=== PATIENT | male | born 1970 | race Caucasian/White ===

== ENCOUNTER 2016-12-11 12:11 | Emergency (ER) | payer OTHER ==
--- NOTE | ~2016-12-11 | US115 ---
[facility] A Service of [facility] & [facility] RADIOLOGY TEXT RESULTS PATIENT: OLY RAMIREZ LOCATION: [facility] : 72 UNIT #: [id number] AGE: [address]: Jack Hood MD SEX: M ORDER DR: [id number] [facility] [address] [place], [place] [address] [id number] MR#: [id number] Acc #: [id number] NAME: OLY RAMIREZ : 1970 SEX: M STUDY DATE/TIME: 12/11/2016 14:15 UNIT: [facility] ROOM: STUDY DESCRIPTION: US Scrotum and Contents Attending Physician: Jack Hood M.D. Ordering Physician: Jack Hood M.D. Primary Care Physician: No Primary Care Physician MEDICAL IMAGING REPORT This report is preliminary unless electronic signature is present EXAM Scrotal ultrasound, 12/11/16. HISTORY Pain for 10 weeks. Hydrocele drainage 10 weeks ago. Pain persists and swelling ever since. TECHNIQUE Real-time ultrasonography of the scrotal contents performed. Garcia-scale, color Doppler, Doppler pulse-wave interrogation utilized. COMPARISON 08/09/16. FINDINGS Left testis measures 3.33 cm x 1.79 cm x 1.40 cm. Normal in contour. Slightly heterogeneous echotexture. No change from 08/09/16, and no focal mass lesion is seen. Arterial and venous flow present in the left testis. Lateral left varicocele. Similar appearance on prior study. This is a relatively prominent varicocele. The right hemiscrotum shows a large hydrocele. Fluid measures about 8.1 cm in transverse diameter. Full longitudinal extent not evident, but it measures at least at 5 cm in craniocaudal extent. I does exert mass effect on the testis. The right testis measures 2.7 cm x 3.95 cm x 1.27 cm. Again, it is normal in contour. Slight parenchymal heterogeneity, but no focal mass lesion seen. The right epididymis contains a complicated cyst in the epididymal head measuring about 3 cm x 2 cm x 3-4 cm. This is smaller than on prior examination when it measured up to 5.8 mm. Large right hydrocele on prior examination as well. No right sided varicocele. Arterial and venous flow in the right testis. Later images of the study do give full dimensions for the right-sided hydrocele. It measures about 9.56 cm x 7.96 cm x 8.17 cm. [employer]. [facility] A Service of [facility] RADIOLOGY TEXT RESULTS PATIENT: OLY RAMIREZ LOCATION: [facility] : 71 UNIT #: [id number] AGE: [address]: Jack Hood MD SEX: M ORDER DR: notes the fluid is posterior and superior to the right testis. IMPRESSION 1. Please see complete dictation above for full details. The bilateral testes are normal in size and contour. Stable appearance of very slightly heterogeneous parenchymal echotexture with no testicular mass lesion suggested. Arterial and venous flow in bilateral testes. 2. Large right hydrocele or spermatocele. It measures about 8.1 cm x 9.5 cm x 7.9 cm. It exerts mass effect on the right testis displacing it into the inferior right hemiscrotum. 3. Right epididymal head cyst. It contains some low-level internal echoes which may represent cyst debris. It is smaller than in August 2016. 4. Prominent left varicocele. Similar appearance on prior study. Dictated by... Contreras Davis M.D. THIS IS AN ELECTRONICALLY VERIFIED REPORT Contreras Davis M.D. at 12/11/2016 5:16 PM QUINCY/anton TD: 12/11/2016 16:12 JOB #: [id number] MEDICAL IMAGING REPORT Page 1 of 1 COPY
[~2016-12-11 12:11] MED LIST: E-MYCIN250 MG PO; FLOMAX0.4 M1 PO; FLOMAX0.4 MG PO; MULTIVITAMIN W/1 TAB PO; NO MEDICATIONS; PENICILLIN PO; PHENERGAN PO; THIAMINE HCL100 MG PO; TYLOX 5/500 CAP1 CAP PO
[2016-12-11 13:53] LABS: URINE SOURCE CLEAN CATCH
[2016-12-11 13:58] LABS: BASOPHIL# 0.2 X10e3 (0-0.3); BASOPHIL% 2.1 % (0-2.5); EOSINOPHIL# 0.1 X10e3 (0-0.7); EOSINOPHIL% 0.8 % (0.0-7.0); HEMATOCRIT 37.7 % (38.0-50.0); HEMOGLOBIN 12.5 gm/dL (13.0-16.0); LYMPHOCYTE# 0.9 X10e3 (1.0-3.5); LYMPHOCYTE% 12.5 % (17.0-45.0); MEAN CELL VOLUME 101.5 FL (83-96); MEAN CORPUSCULAR HEMOGLOBIN 33.6 PG (28-34); MEAN CORPUSCULAR HGB CONC 33.1 g/dL (30-36); MONOCYTE# 1.2 X10e3 (0-1.0); MONOCYTE% 15.3 % (3.0-12.0); NEUTROPHIL# 5.2 X10e3 (1.5-7.1); NEUTROPHIL% 69.3 % (40-75); RED BLOOD COUNT 3.71 X10e (3.90-5.60); RED CELL DISTRIBUTION WIDTH 16.9 % (11.0-15.5); WHITE BLOOD COUNT 7.6 X10e3 (4.0-10.5)
[2016-12-11 13:59] LABS: INR 1.3; PARTIAL THROMBOPLASTIN TIME 29.1 SECONDS (23.5-31.3); PROTHROMBIN TIME (PATIENT) 13.3 SECONDS (9.6-11.5)
[2016-12-11 14:00] LABS: URINE APPEARANCE CLEAR; URINE BLOOD TRACE (NEG); URINE COLOR DK YELLOW; URINE GLUCOSE NEG (NEG); URINE KETONE NEG (NEG); URINE LEUKOCYTE ESTERASE TRACE (NEG); URINE NITRATE NEG (NEG); URINE PH 8.5 (5-8); URINE PROTEIN NEG (NEG)
[2016-12-11 14:01] LABS: DIFF IND YES; PLATELET COUNT 19 X10e3 (140-420)
[2016-12-11 14:02] LABS: URINE BACTERIA AUWI NEG (NEGATIVE); URINE SQUAMOUS EPITHELIAL CELL NONE SEEN /[HPF]; UWBCS1 AUWI 0-2 (0-5)
[2016-12-11 14:10] LABS: CULTURE INDICATED? NO
[2016-12-11 14:59] LABS: PLATELET ESTIMATE DECREASED (NORMAL)
[2016-12-11 15:00] LABS: HYPOCHROMIA MOD; TARGET CELLS MOD
[2016-12-11 15:21] LABS: ALBUMIN SERUM 3.2 g/dL (3.5-5.0); ALKALINE PHOSPHATASE 220 U/L (32-92); ALT (SGPT) 40 U/L (10-40); AST (SGOT) 196 U/L (10-42); BILIRUBIN, DIRECT 2.8 mg/dL (0.0-0.2); BILIRUBIN,INDIRECT 3.3 mg/dL (0.0-0.9); BILIRUBIN,TOTAL 6.1 mg/dL (0.2-2.0); BLOOD UREA NITROGEN <5 mg/dL (9-23); CALCIUM SERUM 8.2 mg/dL (8.4-10.2); CARBON DIOXIDE 27 mmol/L (22-31); CHLORIDE 103 mmol/L (100-111); CREATININE SERUM 0.5 mg/dL (0.6-1.4); GLOM FILT RATE Estimated 130.9 mL/min (>60); GLUCOSE FASTING 97 mg/dL (70-110); POTASSIUM 3.8 mmol/L (3.5-5.1); PROTEIN TOTAL SERUM 7.7 g/dL (6.0-8.3); SODIUM 138 mmol/L (135-145)
== END 2016-12-11 16:50 | disposition home or self-care (01) ==
LOC: CED 12:11
PROVIDERS: Emergency Medicine
DX: N43.3 Hydrocele, unspecified (principal); K74.60 Unspecified cirrhosis of liver; D69.6 Thrombocytopenia, unspecified; Z88.0 Allergy status to penicillin
CPT/HCPCS: 36415; 76870; 80048; 80076; 81003; 85025; 85610; 85730; 93976; 96361; 96374; 99284; J1885

== ENCOUNTER 2016-12-12 11:38 | Inpatient (IN) | payer OTHER ==
--- NOTE | ~2016-12-12 | CO ---
Unit #: [id number] #: [id number] Patient: OLY RAMIREZ [id number] [address] [place], [place] [address] [id number] Cleo MR#: [id number] NAME: OLY RAMIREZ ROOM: [facility] Age: 46 Sex: M Admission Date: 12/12/2016 : 1970 Attending Physician: Lidia Lyon M.D. Primary Care Physician: Tracey Primary Care Physician Consultation Date: 12/14/2016 CONSULTATION REPORT SEE ADDENDUM CODE BLUE NOTE HISTORY This 46-year-old male with alcohol induced cirrhosis was admitted on 12/12/2016 for withdrawal seizure. He was seen by Dr. Chambers and underwent an EGD on 12/13/2016 revealing grade 4 esophageal varices with stigmata of bleeding. Three varices were banded. Earlier in the evening of 12/13/2016, a rapid response was called as the patient had hematemesis. A call was made to GI and octreotide drip was ordered along with FFP and platelet transfusion. I was called around 8:20 p.m. stat to 3A stating that the patient had become hypotensive. The nurse practitioner spoke with me and the patient was transferred to the intensive care unit. His hematocrit was 29.9 at 7:00 p.m. 12/13/2016, down from 36.7 earlier in the day. He was therefore bolused with IV fluids and blood was transfused. He was continued on the octreotide drip. Central line was placed by the nurse practitioner. Despite the above, the patient became more ill. He had a witnessed seizure in the ICU and then coded. Shortly afterwards, he had massive amount of hematemesis. Code was called and then patient was intubated by the ER physician who led most of the initial code. Further blood was transfused. Patient was placed on Levophed and then Compa-Synephrine was added for pressure support. Despite the 4 units of blood transfusion, the patient's hematocrit was then 21.6. After the code, the patient had very little or no brainstem reflexes on exam. Spoke extensively with the family. Patient received multiple doses of bicarb for severe metabolic acidosis. On his ABG, a pH could not even be calculated. He coded a second time and we were able to resuscitate him. I spoke again with the family about continuing aggressive treatment, but consideration of possibly making the DNR. Family wished for the patient to be a full code. Unfortunately, he continued to bleed briskly despite multiple transfusions and coded a third time. We were unable to resuscitate the patient after the third code. I had spoken earlier with GI and also with pulmonary about the case. The patient was pronounced at 1:49 a.m. on 12/14/2016. A summary will be dictated by my partner. Dictated by... Karlie Syed M.D. AML/pc Unit #: [id number] #: [id number] Patient: OLY RAMIREZ TD: 12/14/2016 05:11 JOB #: [id number] ADDENDUM The date of is 12/14/2016. Critical care time spent in evaluating this patient was 90 minutes. Dictated by... Karlie Syed M.D. AML/pc TD: 12/14/2016 05:29 JOB #: [id number] CONSULTATION REPORT Page 1 of 1 X Karlie Syed MD CONSULTATION REPORT
--- NOTE | ~2016-12-12 | CR72 ---
[facility] A Service of [facility] RADIOLOGY TEXT RESULTS PATIENT: OLY RAMIREZ LOCATION: [place] [address]11 : 72 UNIT #: [id number] AGE: [address]: Lidia Lyon MD SEX: M ORDER DR: [id number] [facility] [address] [place], [place] [address] [id number] I MR#: [id number] Acc #: [id number] NAME: OLY RAMIREZ : 1970 SEX: M STUDY DATE/TIME: 12/13/2016 21:37 UNIT: [facility] ROOM: [facility] STUDY DESCRIPTION: CR Chest Single View Portable Attending Physician: Lidia Lyon M.D. Ordering Physician: Ed Matthew Jesus M.D. Primary Care Physician: Primary Care Physician No MEDICAL IMAGING REPORT This report is preliminary unless electronic signature is present EXAM Frontal chest, 12/13/16 INDICATIONS Central line placement today. TECHNIQUE Frontal chest compared with 12/12/16. FINDINGS Right-sided central line from a neck approach terminates at the cavoatrial junction level. Cardiac silhouette borderline in size and stable. Lung volumes are low with bronchovascular crowding. Probable perihilar atelectasis or less likely faint infiltrate on the right. No pneumothorax. IMPRESSION 1. Right-sided central line from a neck approach terminates at the cavoatrial junction and there is no pneumothorax. 2. Borderline to mild cardiomegaly with low lung volumes. Probable perihilar atelectasis or less likely infiltrate on the right. Dictated by... Eric Goldman M.D. THIS IS AN ELECTRONICALLY VERIFIED REPORT Eric Goldman M.D. at 12/14/2016 11:27 AM BLADIMIR/feliberto TD: 12/13/2016 23:06 JOB #: [id number] MEDICAL IMAGING REPORT [facility] A Service [facility] RADIOLOGY TEXT RESULTS PATIENT: OLY RAMIREZ LOCATION: [address] : [birth year] UNIT #: [id number] AGE: [address]: Lidia Lyon MD SEX: M ORDER DR: Page 1 of 1 COPY
--- NOTE | ~2016-12-12 | DS ---
Unit #: [id number] #: [id number] Patient: OLY RAMIREZ [id number] [address] [address] [id number] I MR#: [id number] NAME: OLY RAMIREZ ROOM: [facility] Age: 46 Sex: M Admission Date: 12/12/2016 : 1970 Discharge Date: 12/14/2016 Attending Physician: Lidia Lyon M.D. Primary Care Physician: No Primary Care Physician DISCHARGE SUMMARY PRINCIPAL DIAGNOSES 1. Massive variceal bleeding. 2. Hypovolemic shock. 3. Cardiopulmonary arrest secondary to number one and number 2. 4. Acute alcohol withdrawal seizures. 5. Delirium tremens. 6. Chronic alcohol abuse. 7. Cirrhosis secondary to chronic alcohol abuse. 8. Right-sided hydrocele. 9. Questionable peritonitis. 10. Severe protein malnutrition. 11. Severe metabolic acidosis secondary to lactic acidosis. 12. Hyperkalemia. 13. Thrombocytopenia secondary to chronic alcohol abuse. CONSULTANTS 1. Dr. Chambers, gastroenterology. 2. LSA. PROCEDURES EGD on December 13, 2016 with findings of grade 4 esophageal varices status post banding x3. Changes of portal hypertensive gastropathy noted. Duodenum was normal. DIAGNOSTIC STUDIES IMAGING: Chest x-ray on December 13, 2016 following intubation without findings of focal infiltrate. CT scan of the abdomen and pelvis with contrast on December 12, 2016 with diffuse hepatitic steatosis and nodularity of the liver noted. Right lobe of liver was quite mottled concerning for underlying malignancy. Moderate volume of ascites noted. CLINICAL HISTORY AND HOSPITAL COURSE Mr. Pancho Barber was a 46-year-old male who presented to the emergency department with complaints of increasing abdominal pain and having a syncopal episode at home followed by seizure. In the emergency department the patient was felt to most likely have had alcohol withdrawal seizure. He had laceration of the tongue. CT scan of the abdomen and pelvis revealed significant cirrhosis with underlying ascites. He was also found to be thrombocytopenic in addition to anemic. There were concerns about underlying peritonitis, and he was started on empiric antibiotics and subsequently admitted. Unit #: [id number] #: [id number] Patient: OLY RAMIREZ The patient was placed on CIWA protocol and antibiotics as noted. Initially he clinically appeared to be doing better. There were plans for paracentesis per interventional radiology, but unfortunately, patient's platelet count was too low, and the procedure was held. He did undergo EGD with banding of the esophageal varices as noted above. Later in the evening on the the patient developed an episode of hematemesis, and hemoglobin was found to be dropped. The patient became hypotensive and was transferred to the ICU. He was placed on 2 pressors, transfused 4 units of blood but, unfortunately, continued to have significant decline and subsequently coded on 3 occasions. The patient could not be revived after the last code, and he passed on December 14, 2016 at 1:49 a.m. Dictated by... Lidia Lyon M.D. PRIYANKA/shayy TD: 12/17/2016 16:05 JOB #: [id number] DISCHARGE SUMMARY Page 1 of 1 X Lidia Lyon MD X DISCHARGE SUMMARY
--- NOTE | ~2016-12-12 | HP ---
Unit #: [id number] #: [id number] Patient: OLY RAMIREZ [id number] [address] [place], [place] [address] [id number] I MR#: [id number] NAME: OLY RAMIREZ ROOM: 33390 Age: 46 Sex: M Admission Date: 12/12/2016 : 1970 Attending Physician: Ricco Gambino M.D. Primary Care Physician: No Primary Care Physician HISTORY AND PHYSICAL CHIEF COMPLAINT A syncopal episode. HISTORY OF PRESENT ILLNESS The patient is a 46-year-old I[place]ian male who speaks only Arabic, is admitted for the syncopal episode. The patient stated the patient was seen in the emergency room last night/yesterday in the emergency room for the groin pain and was diagnosed with a hydrocele and discharged home on Percocet. The patient went home and started vomiting. The patient passed, out associated with the seizures in the bathroom. The patient bit his tongue and was brought to the emergency room with vomiting of blood. The patient is being admitted for above reasons. The patient was febrile at the time of presentation to the emergency room with a fever of 100.2. The patient stated the patient's last alcohol was three days ago. The patient has been admitted for the above reasons. PAST MEDICAL HISTORY History of kidney stones, cirrhosis. PAST SURGICAL HISTORY History of a testicular surgery. HOME MEDICATIONS Denies any home medication. ALLERGIES Penicillin. SOCIAL HISTORY The patient lives with his two children and sister, is a lifelong nonsmoker, does drink rum on a daily basis, two glasses a day and each glass equal to six ounces. FAMILY HISTORY Family history negative for kidney disease or liver disease. REVIEW OF SYMPTOMS Fourteen-point review of symptoms performed and only pertinent positive findings as described above, remaining are negative. PHYSICAL EXAMINATION GENERAL APPEARANCE: On examination the patient is lying on a bed not in acute distress. VITAL SIGNS: Temperature is 98.8, pulse 125, respiratory rate 20, blood Unit #: [id number] #: [id number] Patient: OLY RAMIREZ pressure 154/100, sating 92% at room air. HEENT: Head atraumatic, normocephalic. Pupils equal, round and reacting to light and accommodation. Dry mucous membranes. Positive for pallor and icterus. NECK: Supple. LUNGS: Decreased air entry at the bases. ABDOMEN: Distended, with discomfort. EXTREMITIES: No cyanosis. No clubbing. NEUROLOGIC: Alert, awake, oriented. No gross focal motor deficit. DIAGNOSTIC STUDIES LABORATORY DATA: Troponin less than 0.05, INR is 1.4, glucose 144, lactic acid 7.8, ammonia 93, sodium 134, potassium 3.3, chloride 101, bicarb 18, glucose 140, BUN 5, creatinine 0.7, AST 208, ALT 42, alkaline phosphatase 237, total bilirubin 9.4, direct bilirubin 4.4, total protein 8.5, WBC 8.7, hemoglobin 13, hematocrit 39.5, platelets 30 and UA shows 1+ leukocyte esterase, positive nitrites, urine RBCs 10 to 25. Magnesium is 1.4. IMAGING: Chest x-ray shows cardiomegaly but there is no evidence of vascular congestion. Overall lung volumes are diminished with bibasilar atelectasis noted. There is no pneumothorax or pleural effusion. No definite acute infiltrates are seen. CT of the abdomen and pelvis shows patient has cirrhosis and cannot rule out mass and moderate ascites and nonobstructive kidney stones. Patient had an ultrasound of the scrotum yesterday that showed the bilateral testes are normal in size and contour. Stable appearance of very slightly heterogeneous parenchymal echotexture with no testicular mass lesion. Large right hydrocele or spermatocele. Right epididymal head cyst. ASSESSMENT 1. Syncope. 2. Alcoholic withdrawal seizures. 3. Peritonitis/sepsis. 4. Ascites/cirrhosis. 5. Right hydrocele. 6. Hematemesis. PLAN Plan to admit to the inpatient with the telemetry. Will have the GI consult for hematemesis and LSA consult for the hydrocele. Continue with the CIWA protocol and patient will receive the Rocephin 1 g daily for the probable peritonitis and continue with the sepsis protocol and further recommendations will follow. Dictated by Galindo Manjarrez/kat Unit #: [id number] #: [id number] Patient: OLY RAMIREZ TD: 12/12/2016 18:50 JOB #: [id number] HISTORY AND PHYSICAL Page 1 of 1 X RICCO GAMBINO MD HISTORY AND PHYSICAL
--- NOTE | ~2016-12-12 | CT2 ---
[facility] A Service of [facility] & [facility] RADIOLOGY TEXT RESULTS PATIENT: OLY RAMIREZ LOCATION: A 301-01 : 72 UNIT #: [id number] AGE: [address]: RICCO MAURO MD SEX: M ORDER DR: [id number] [facility] [address] [place], [place] [address] [id number] MR#: [id number] Acc #: [id number] NAME: OLY RAMIREZ : 1970 SEX: M STUDY DATE/TIME: 12/12/2016 15:26 UNIT: [facility] ROOM: STUDY DESCRIPTION: CT Abd and Pelv W Cont Attending Physician: Bill Sanon M.D. Ordering Physician: Bill Sanon M.D. Primary Care Physician: No Primary Care Physician MEDICAL IMAGING REPORT This report is preliminary unless electronic signature is present EXAM CT of the abdomen and pelvis with IV contrast media. HISTORY Abdominal pain and fever, testicular surgery November 27, upper abdominal pain and swelling since. TECHNIQUE Axial imaging of the abdomen and pelvis was performed with IV contrast media: This CT exam was performed with one or more of the following radiation dose reduction techniques: automatic exposure control, adjustment of mA and/or kV according to patient size, and iterative reconstruction. FINDINGS Lung bases in this patient are clear. Scans through the liver show evidence of chronic liver disease. The liver in particular throughout the right lobe has a very mottled appearance. The left lobe is much more homogeneous. The liver is extremely nodular. The portal vein is patent. The hepatic arteries are patent. The spleen does not appear enlarged. The pancreas has a normal appearance. Gallbladder is normal. There are varices present. The patient does appear to have a spontaneous splenorenal shunt. There is a moderate volume of ascites within the abdomen and pelvis. There are multiple nonobstructing bilateral renal stones. No dilated or thickened loops of bowel are present. The bladder is unremarkable. Patient does have a right inguinal hernia and a right hydrocele. There is a very small periumbilical hernia containing a tiny amount of fluid. There is no evidence of lymphadenopathy. CONCLUSIONS 1. Diffuse hepatic steatosis with nodularity consistent with cirrhosis. This is present on the patient's study of 08/09/16. The liver, particularly the right lobe, has developed a very mottled appearance [facility] A Service of [facility] RADIOLOGY TEXT RESULTS PATIENT: OLY RAMIREZ LOCATION: [facility] 301-01 : [birth year] UNIT #: [id number] AGE: [address]: RICCO MAURO MD SEX: M ORDER DR: compared with the last exam. Underlying tumor (infiltrate) is not excluded. Consider triple phase liver exam or MR for further characterization. 2. Normal size spleen, although the patient does have evidence of varices. 3. Moderate volume of ascites. The volume has increased since the last study. 4. Multiple bilateral nonobstructing renal stones. 5. Small periumbilical hernia. 6. Large right inguinal hernia with fluid in the right scrotal sac. STAT * RESULT Dictated by... Contreras Skinner M.D. THIS IS AN ELECTRONICALLY VERIFIED REPORT Contreras Skinner M.D. at 12/13/2016 7:14 AM YEMI/anton TD: 12/12/2016 16:37 JOB #: [id number] MEDICAL IMAGING REPORT Page 1 of 1 COPY
--- NOTE | ~2016-12-12 | CR72 ---
[facility] A Service of [facility] & [facility] RADIOLOGY TEXT RESULTS PATIENT: OLY RAMIREZ LOCATION: [facility] : 72 UNIT #: [id number] AGE: [address]: Bill Sanon MD SEX: M ORDER DR: [id number] [facility] [address] [place], [place] [address] [id number] MR#: [id number] Acc #: [id number] NAME: OLY RAMIREZ : 1970 SEX: M STUDY DATE/TIME: 12/12/2016 12:06 UNIT: [facility] ROOM: STUDY DESCRIPTION: CR Chest Single View Portable Attending Physician: Bill Sanon M.D. Ordering Physician: Bill Sanon M.D. Primary Care Physician: No Primary Care Physician MEDICAL IMAGING REPORT This report is preliminary unless electronic signature is present EXAM Portable chest radiograph INDICATION Syncope shortness of breath and hypertension starting today. FINDINGS Patient does have cardiomegaly but there is no evidence of vascular congestion. Overall lung volumes are diminished with bibasilar atelectasis noted. There is no pneumothorax or pleural effusion. No definite acute infiltrates are seen. Dictated by... Flora Thorpe M.D. THIS IS AN ELECTRONICALLY VERIFIED REPORT Flora Thorpe M.D. at 12/12/2016 5:19 PM AFF/rnr TD: 12/12/2016 12:39 JOB #: [id number] MEDICAL IMAGING REPORT Page 1 of 1 COPY
--- NOTE | ~2016-12-12 | EKG ---
PATIENT: OLY RAMIREZ UNIT #: [id number] Ventricular Rate: 123 BPM Atrial Rate: 123 BPM P-R Interval: 126 ms QRS Duration: 90 ms Q-T Interval: 338 ms QTC Calculation(Bezet): 483 ms P Strathmore: 30 degrees Calculated R Strath[place]: -41 degrees Calculated T Str[place]: 19 degrees Diagnosis Line: Sinus tachycardia Diagnosis Line: Left axis deviation Diagnosis Line: Septal infarct , age undetermined Diagnosis Line: Abnormal ECG Diagnosis Line: Diagnosis Line: Confirmed by KAPIL BIGGS MD ([id number]) on Diagnosis Line: 12/14/2016 3:40:40 PM INTERPRETING MD: TRUDY
--- NOTE | ~2016-12-12 | CR72 ---
[facility] A Service of [facility] & [facility] RADIOLOGY TEXT RESULTS PATIENT: OLY RAMIREZ LOCATION: [address] : [birth year] UNIT #: [id number] AGE: [address]: Lidia Lyon MD SEX: M ORDER DR: [id number] [facility] [address] [place], [place] [address] [id number] I MR#: [id number] Acc #: [id number] NAME: OLY RAMIREZ : 1970 SEX: M STUDY DATE/TIME: 12/13/2016 22:31 UNIT: [facility] ROOM: [facility] STUDY DESCRIPTION: CR Chest Single View Portable Attending Physician: Lidia Lyon M.D. Ordering Physician: Karlie Syed M.D. Primary Care Physician: No Primary Care Physician MEDICAL IMAGING REPORT This report is preliminary unless electronic signature is present EXAM Portable chest. INDICATIONS Evaluate endotracheal tube placement. Difficulty breathing. FINDINGS This portable view of the chest shows that an endotracheal tube has been added. This is compared with one from a short while ago. There are low lung volumes. The heart size normal and there are no focal infiltrates. There is also a nasogastric tube now present with its tip in the stomach. The central venous catheter is stable with its tip in the superior vena cava. Dictated by... Damon Baxter M.D. THIS IS AN ELECTRONICALLY VERIFIED REPORT Damon Baxter M.D. at 12/14/2016 2:12 AM CLAU/anton TD: 12/13/2016 23:23 JOB #: [id number] MEDICAL IMAGING REPORT Page 1 of 1 COPY
--- NOTE | ~2016-12-12 | OR ---
Unit #: [id number] #: [id number] Patient: OLY RAMIREZ [id number] [address] [place], [place] [address] [id number] MR#: [id number] NAME: OLY RAMIREZ ROOM: [facility] Date of Procedure: 12/13/2016 Admission Date: 12/12/2016 Surgeon: Kyle Chambers M.D. : 1970 Attending Physician: Lidia Lyon M.D. OPERATIVE REPORT PREOPERATIVE DIAGNOSES The patient presented with advanced liver disease, cirrhosis, deep jaundice, coagulopathy, and severe thrombocytopenia. He also has evidence of hepatic encephalopathy. The purpose of the endoscopy is to look for esophageal varices, and if sizable, to do banding. PROCEDURES PERFORMED Upper gastrointestinal endoscopy and esophageal variceal band ligation. POSTOPERATIVE DIAGNOSES 1. The patient had grade 4 tortuous esophageal varices in mid and distal esophagus along with stigmata of recent bleed in the form of santillan-red spots or hemocytoblastic spots, varices in the GE junction. 2. Changes of portal hypertensive gastropathy involving the fundic mucosa. 3. Rest of examination up to third part of duodenum was normal. Two of the varices were banded using variceal band ligation and a total of 3 rubber bands were deployed. RECOMMENDATIONS We will initiate the patient on octreotide infusion and monitor hemoglobin and hematocrit. We will also transfuse fresh frozen plasma and platelets before the patient can undergo paracentesis tomorrow. SEDATION USED MAC. DESCRIPTION OF PROCEDURE Following detailed explanation of the potential risks and complications of an upper endoscopy, namely perforation, bleeding, and complications related to sedation, the patient was brought to GI lab and laid in the left lateral decubitus position. Lubricated tip of the Olympus video upper endoscope was passed through bite block into the proximal esophagus under direct vision. The entire esophageal mucosa was examined and the patient was noted to have grade 4 tortuous esophageal varices in mid and distal esophagus along with santillan red spots. The hemocytoblastic spots indicating stigmata of recent bleed. The scope was then advanced into the gastric cavity and the latter was insufflated. Mucosa of the fundus, body, and antrum examined and changes of portal hypertensive gastropathy were seen diffusely in the gastric fundus and proximal body of the stomach. The prepyloric antral area also had erythema. Pylorus was intubated with visualization of the normal duodenal bulb and second and Unit #: [id number] #: [id number] Patient: OLY RAMIREZ third part of the duodenum. Upon withdrawal and retroflexion, incisura, cardia, and greater curve examined and no additional findings noted. The scope was then withdrawn in the distal esophagus. The entire esophageal mucosa was examined all the way up to pharynx. No additional findings noted. A rapid shooter band ligator assembly was mounted on the scope tip and the patient was reintubated. Two of the larger varices were then banded using band ligation. Excellent hemostasis was achieved and photodocumentation was obtained. The scope was then withdrawn all the way up to pharynx. No additional findings noted. The patient tolerated the procedure without any postprocedure complications. Dictated by... Galindo Stahl/amy TD: 12/14/2016 06:08 JOB #: [id number] CC: Lidia Lyon M.D. OPERATIVE REPORT Page 1 of 1 X Kyle Chambers MD X PROCEDURE OPERATIVE NOTE
--- NOTE | ~2016-12-12 | CO ---
Unit #: [id number] #: [id number] Patient: OLY RAMIREZ [id number] [id number] [facility] [place], [place] [address] [id number] I MR#: [id number] NAME: OLY RAMIREZ ROOM: [facility] Age: 46 Sex: M Admission Date: 12/12/2016 : 1970 Attending Physician: Lidia Lyon M.D. Primary Care Physician: Tracey Primary Care Physician Consultation Date: 12/13/2016 CONSULTATION REPORT DIAGNOSIS Advanced liver disease, deep jaundice. HISTORY Mr. Pancho Barber is a very pleasant 46-year-old Luxembourger gentleman, who speaks Malay. The history was obtained from the patient and his sister who was present in the room through Ann, the pharmacy director, who translated on patient's behalf. Patient actually came to the emergency room a couple days ago and was sent home to be followed up in the office. He came again, this time with syncope episode. In addition, he has also been complaining of pain in the right groin as a result of hydrocele. He apparently started vomiting at home and passed out with a seizure in the bathroom. The seizure was not witnessed but patient had a large hematoma on the tongue tip as the result of a tongue bite and he came to the emergency room vomiting blood. He had a low-grade temperature of 100.2 on admission. He last drank alcohol three weeks ago. After obtaining his history, subsequently further history was obtained from two of the sisters who came from [place] in the presence of his teenage daughter and son. His past medical history is significant for history of renal stones and cirrhosis. In fact, has been told he had advanced liver disease and was advised to stop alcohol at least a couple years ago. Previous surgeries included a testicular surgery in the past. MEDICATIONS None. He denies taking [id number] NSAIDs. ALLERGIES Penicillin. SOCIAL HISTORY He lives with his two children and a sister. Never smoked. 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 He last worked about three to four weeks ago. REVIEW OF SYSTEMS A detailed review of organ system does not reveal any recent weight loss. There is history of low-grade fever. No chills or rigors. No history of headaches, seizures, or chest pain. There is history of syncope. There is history of fatigue. There is history of hematemesis but no melena. There is no history of dysuria, hematuria, or pyuria. No history of focal seizures. There is history of some form of seizure and syncope earlier today. No history of chest pain. No history of headache or focal neurologic deficit. No history of skin rash or aphthous ulcers in the mouth. Unit #: [id number] #: [id number] Patient: OLY RAMIREZ PHYSICAL EXAMINATION GENERAL: Appears awake and alert despite the fact that has high ammonia. VITAL SIGNS: He does, however, have basal sinus tachycardia with a heart rate of 120. His temperature is 99. It was 100.2 earlier. Respiratory rate is 22. Blood pressure is 147/108. His weight is probably not recorded correctly. It was recorded as 165 yesterday and 139 today, so there must be an error in recording his weight. HEENT: He has [id number] pallor, obvious icterus. No lymphadenopathy. Grade 1 to 2 pitting peripheral edema. CARDIOVASCULAR: Revealed normal heart sounds. No murmurs. LUNGS: Auscultation of the lungs reveal bilateral symmetric normal air entry. ABDOMEN: Soft and distended due to moderately large ascites. No area of rigidity, rebound, or guarding is felt in the abdomen. Liver and spleen are not palpable. Bowel sounds normal. (1) are normal. The patient does have a right-sided hydrocele on examination of the genitalia. No tenderness is elicited over the (2) . DIAGNOSTIC STUDIES LABORATORY: Lab evaluation shows severe thrombocytopenia with a platelet count of 25,000 to 30,000. In addition, his hemoglobin is 9.8. Baseline hemoglobin was 12.9 and white count is 11.8. Patient does have coagulopathy with an INR of 1.4. The BUN and creatinine is normal. Sodium and potassium is also normal. The chief finding being mild metabolic acidosis. Total bilirubin was 9 with AST and ALT of 208 and 42 respectively, alkaline phosphatase 237. Ammonia is 93. Lactic acid level was 6.2. Hepatic serology is pending. Tox screen not done. Urinalysis positive for nitrite, leukocyte, and has numerous RBCs. CLINICAL IMPRESSION Patient with advanced liver disease due to alcoholic cirrhosis along with ascites, hepatic encephalopathy, anasarca, coagulopathy, thrombocytopenia, upper gastrointestinal bleed most likely as a result of tongue bite or possible from esophageal varices. MANAGEMENT PLAN 1. A considerable discussion and time was spent in explaining to the family and his sister as well as his that patient must achieve complete and total sobriety to get any relief and improvement in his condition. 2. He will start on low sodium, 2 g sodium diet with high protein and carbohydrates. 3. Initiate on diuretics, Lasix [address] Lyon has already started 80 mg of Lasix and add Aldactone 200 mg in addition. 4. Transfuse platelets and fresh frozen plasma for the patient to be able to have diagnostic paracentesis and assessment of albumin gradient of the ascitic fluid by interventional radiology. 5. Index endoscopy as patient may have had upper GI bleed from esophageal varices and if he has a large varices, this will require band ligation. 6. GI bleed prophylaxis with Protonix 40 mg IV b.i.d. 7. Considerable discussion was held with the family. They were explained that the prognosis is dependent for the most part on patient's ability to achieve total sobriety. Thank you very much for asking me to see this pleasant gentleman. I appreciate the consult. Unit #: [id number] #: [id number] Patient: OLY RAMIREZ Dictated by... Galindo Stahl/luis eduardo TD: 12/14/2016 11:47 JOB #: [id number] CC: Galindo Alfaro M.D. CONSULTATION REPORT Page 1 of 1 X Kyle Chambers MD X CONSULTATION REPORT
--- NOTE | ~2016-12-12 | CO ---
Unit #: [id number] #: [id number] Patient: OLY RAMIREZ [id number] [address] [place], [place] [address] [id number] I MR#: [id number] NAME: OLY RAMIREZ ROOM: [facility] Age: 46 Sex: M Admission Date: 12/12/2016 : 1970 Attending Physician: Lidia Lyon M.D. Primary Care Physician: Primary Care Physician No CONSULTATION REPORT HISTORY OF PRESENT ILLNESS Mr. Pancho Barber is a 46-year-old, Niuean speaking, white male, unfortunately who has what appears to be advanced cirrhosis alcoholic abuse with refractory ascites, clinical esophageal varices as well as hyperammonemia and increased lactic acid. His bilirubin is also up as well as his platelet count being low and albumin being low. This would fit him into the Child class C cirrhotic. We were asked to see him because of what appears to be fluid in his scrotum, consistent with a hydrocele. He is an alert, cooperative white male. His abdomen is distended, consistent with ascites. No peritonitis noted. No rebound. No guarding. Umbilical hernia reducible, appears to have most likely a right inguinal hernia with communicating hydrocele and fluid in his scrotum, consistent with his ascites. This patient has very poor prognosis. No surgery is indicated at present. GI is to evaluate. We will follow this patient clinically. Dictated by... Galindo Miller/amy TD: 12/13/2016 07:34 JOB #: [id number] CONSULTATION REPORT Page 1 of 1 X Patrick Chao MD X CONSULTATION REPORT
--- NOTE | ~2016-12-12 | CT71 ---
[facility] A Service of [facility] RADIOLOGY TEXT RESULTS PATIENT: OLY RAMIREZ LOCATION: [facility] : 72 UNIT #: [id number] AGE: [address]: Lidia Lyon MD SEX: M ORDER DR: [id number] [facility]. [place], [place] [address] [id number] I MR#: [id number] Acc #: [id number] NAME: OLY RAMIREZ : 1970 SEX: M STUDY DATE/TIME: 12/12/2016 13:55 UNIT: [address] ROOM: [address] [place] [address] DESCRIPTION: CT Head Wo Contrast Attending Physician: Cara Gambino M.D. Ordering Physician: Bill Sanon M.D. MEDICAL IMAGING REPORT This report is preliminary unless electronic signature is present COULD NOT FIND ORDER EXAM CT of the head without contrast. INDICATION Passed out in the bathroom today. TECHNIQUE Axial CT images were obtained from the vertex of the skull through skull base. No intravenous contrast material was administered. This CT exam was performed with one or more of the following radiation dose reduction techniques: automatic exposure control, adjustment of mA and/or kV according to patient size, and iterative reconstruction. FINDINGS No acute intracranial hemorrhage is identified. Brain parenchyma is normal in attenuation with no focal areas of decreased attenuation seen. There is no midline shift or mass effect. Ventricles are normal in size. This patient does have a left frontal soft tissue hematoma measuring up to 3.4 x 1.0 cm. Again, I do not see any underlying hemorrhage and no underlying calvarial fracture is seen. IMPRESSION 1. No acute intracranial hemorrhage identified. 2. Left frontal soft tissue hematoma measuring up to 3.4 x 1.0 cm without underlying calvarial fractures. Dictated by... Flora Thorpe M.D. THIS IS AN ELECTRONICALLY VERIFIED REPORT [facility] A Service of [facility] RADIOLOGY TEXT RESULTS PATIENT: OLY RAMIREZ LOCATION: [facility] : 72 UNIT #: [id number] AGE: [address]: Lidia Lyon MD SEX: M ORDER DR: Flora Thorpe M.D. at 12/13/2016 4:42 PM AFF/jt TD: 12/12/2016 15:24 JOB #: [id number] MEDICAL IMAGING REPORT Page 1 of 1 COPY
[2016-12-12 12:15] LABS: BASOPHIL# 0.1 X10e3 (0-0.3); BASOPHIL% 0.7 % (0-2.5); EOSINOPHIL# 0.1 X10e3 (0-0.7); EOSINOPHIL% 0.6 % (0.0-7.0); HEMATOCRIT 39.5 % (38.0-50.0); LYMPHOCYTE# 0.8 X10e3 (1.0-3.5); LYMPHOCYTE% 9.6 % (17.0-45.0); MEAN CELL VOLUME 101.9 FL (83-96); MEAN CORPUSCULAR HEMOGLOBIN 33.6 PG (28-34); MEAN PLATELET VOLUME 11.4 FL (6.5-11.5); MONOCYTE# 1.2 X10e3 (0-1.0); NEUTROPHIL# 6.5 X10e3 (1.5-7.1); NEUTROPHIL% 75.1 % (40-75); RED BLOOD COUNT 3.88 X10e (3.90-5.60); RED CELL DISTRIBUTION WIDTH 16.7 % (11.0-15.5); WHITE BLOOD COUNT 8.7 X10e3 (4.0-10.5)
[2016-12-12 12:19] LABS: POC - CKMB 2.1 ng/mL (0.0-7.9); POC - TROPONIN <0.05 ng/mL (<=0.05)
[2016-12-12 12:22] LABS: PLATELET COUNT 30 X10e3 (140-420)
[2016-12-12 12:23] LABS: DIFF IND YES
[2016-12-12 12:24] LABS: INR 1.4; PARTIAL THROMBOPLASTIN TIME 27.8 SECONDS (23.5-31.3); PROTHROMBIN TIME (PATIENT) 14.7 SECONDS (10.0-11.7)
[2016-12-12 12:30] LABS: URINE SOURCE CLEAN CATCH
[2016-12-12 12:37] LABS: URINE APPEARANCE CLOUDY; URINE BLOOD 2+ (NEG); URINE COLOR DK YELLOW; URINE GLUCOSE NEG (NEG); URINE KETONE NEG (NEG); URINE LEUKOCYTE ESTERASE 1+ (NEG); URINE NITRATE POS (NEG); URINE SPECIFIC GRAVITY 1.019 (1.003-1.035)
[2016-12-12 12:39] LABS: URINE BACTERIA AUWI NEG (NEGATIVE); URINE SQUAMOUS EPITHELIAL CELL NONE SEEN /[HPF]; UWBCS1 AUWI 0-2 (0-5)
[2016-12-12 12:40] LABS: URINE PROTEIN 1+ (NEG)
[2016-12-12 12:41] LABS: ALBUMIN SERUM 3.4 g/dL (3.5-5.0); BILIRUBIN, DIRECT 4.4 mg/dL (0.0-0.2); BUN/CREATININE RATIO 7.14; CALCIUM SERUM 8.4 mg/dL (8.4-10.2); CREATININE SERUM 0.7 mg/dL (0.6-1.4); POTASSIUM 3.3 mmol/L (3.5-5.1); PROTEIN TOTAL SERUM 8.5 g/dL (6.0-8.3)
[2016-12-12 12:43] LABS: BILIRUBIN,TOTAL 9.4 mg/dL (0.2-2.0); PLATELET ESTIMATE DECREASED (NORMAL)
[2016-12-12 12:44] LABS: ANISOCYTOSIS SL
[2016-12-12 12:48] LABS: CULTURE INDICATED? NO; URINE BILIRUBIN POS (NEG)
[2016-12-12 12:53] LABS: URINE MUCUS PRESENT
[2016-12-13 07:55] LABS: HEMATOCRIT 36.7 % (38.0-50.0); HEMOGLOBIN 11.9 gm/dL (13.0-16.0); MEAN CELL VOLUME 102.5 FL (83-96); MEAN CORPUSCULAR HEMOGLOBIN 33.4 PG (28-34); MEAN CORPUSCULAR HGB CONC 32.6 g/dL (30-36); MEAN PLATELET VOLUME 9.8 FL (6.5-11.5); RED BLOOD COUNT 3.58 X10e (3.90-5.60); RED CELL DISTRIBUTION WIDTH 16.4 % (11.0-15.5)
[2016-12-13 08:27] LABS: ALBUMIN SERUM 2.9 g/dL (3.5-5.0); CALCIUM SERUM 7.9 mg/dL (8.4-10.2); CREATININE SERUM 0.5 mg/dL (0.6-1.4); GLOM FILT RATE Estimated 130.9 mL/min (>60); MAGNESIUM 1.6 mg/dL (1.6-3.0); POTASSIUM 4.2 mmol/L (3.5-5.1); PROTEIN TOTAL SERUM 7.4 g/dL (6.0-8.3)
[2016-12-13 19:11] LABS: HEMATOCRIT 29.9 % (38.0-50.0); HEMOGLOBIN 9.8 gm/dL (13.0-16.0); MEAN CELL VOLUME 102.4 FL (83-96); MEAN CORPUSCULAR HEMOGLOBIN 33.6 PG (28-34); MEAN CORPUSCULAR HGB CONC 32.8 g/dL (30-36); MEAN PLATELET VOLUME 9.7 FL (6.5-11.5); RED BLOOD COUNT 2.92 X10e (3.90-5.60); RED CELL DISTRIBUTION WIDTH 16.4 % (11.0-15.5); WHITE BLOOD COUNT 11.8 X10e3 (4.0-10.5)
[2016-12-13 20:46] LABS: ARTERIAL BLD GAS O2 SATURATION 92.4 % (90.0-100.0); ARTERIAL BLOOD GAS ART SITE RIGHT BRACHIAL; ARTERIAL BLOOD GAS CARBOXY HB 1.6 %sat (0.0-9.0); ARTERIAL BLOOD GAS DELIVERY ROOM AIR; ARTERIAL BLOOD GAS MET HB 0.5 %sat (0.0-2.0); ARTERIAL BLOOD GAS PCO2 28.6 mmHg (35.0-45.0); ARTERIAL BLOOD GAS PO2 60.8 mmHg (80.0-100); ARTERIAL BLOOD GAS pH 7.432 (7.350-7.450); ARTERIAL DRAW? YES
[2016-12-13 21:14] LABS: HEMOGLOBIN 7.7 gm/dL (13.0-16.0); MEAN CORPUSCULAR HEMOGLOBIN 33.7 PG (28-34); MEAN PLATELET VOLUME 10.4 FL (6.5-11.5); RED BLOOD COUNT 2.27 X10e (3.90-5.60); RED CELL DISTRIBUTION WIDTH 16.7 % (11.0-15.5); WHITE BLOOD COUNT 12.8 X10e3 (4.0-10.5)
[2016-12-13 21:15] LABS: MEAN CELL VOLUME 105.5 FL (83-96)
[2016-12-14 01:00] LABS: HEMATOCRIT 21.6 % (38.0-50.0)
[2016-12-14 01:01] LABS: HEMOGLOBIN 6.3 gm/dL (13.0-16.0)
[2016-12-14 01:13] LABS: INR 2.9; PROTHROMBIN TIME (PATIENT) 31.2 SECONDS (10.0-11.7)
[2016-12-14 02:10] LABS: ALBUMIN SERUM 1.3 g/dL (3.5-5.0); BUN/CREATININE RATIO 8.33; CREATININE SERUM 1.2 mg/dL (0.6-1.4); GLOM FILT RATE Estimated 72.6 mL/min (>60); MAGNESIUM 2.2 mg/dL (1.6-3.0); POTASSIUM 5.2 mmol/L (3.5-5.1); PROTEIN TOTAL SERUM 3.1 g/dL (6.0-8.3)
[2016-12-14 02:15] LABS: BILIRUBIN,TOTAL 3.5 mg/dL (0.2-2.0); CALCIUM SERUM 5.9 mg/dL (8.4-10.2); PHOSPHOROUS 8.9 mg/dL (2.5-4.6)
== END 2016-12-14 04:50 | disposition expired | DRG 371 ==
LOC: CED 11:38 → CICCU2 16:50 → CEDOF 16:50 → CED 17:23 → CEDOF 17:23 → C3A PCU 22:23 → CICCU2 12-13 20:40
PROVIDERS: Emergency Medicine; Internal Medicine; Internal Medicine Gastroenterology
PROC: 0BH17EZ Insertion of Endotracheal Airway into Trachea, Via Natural or Artificial Opening (ICD-10-PCS; principal; 2016-12-12)
PROC: 5A1945Z Respiratory Ventilation, 24-96 Consecutive Hours (ICD-10-PCS; 2016-12-12)
PROC: 05HM33Z Insertion of Infusion Device into Right Internal Jugular Vein, Percutaneous Approach (ICD-10-PCS; 2016-12-13)
PROC: B543ZZA Ultrasonography of Right Jugular Veins, Guidance (ICD-10-PCS; 2016-12-13)
PROC: 30233L1 Transfusion of Nonautologous Fresh Plasma into Peripheral Vein, Percutaneous Approach (ICD-10-PCS; 2016-12-13)
PROC: 30233K1 Transfusion of Nonautologous Frozen Plasma into Peripheral Vein, Percutaneous Approach (ICD-10-PCS; 2016-12-13)
PROC: 06L34CZ Occlusion of Esophageal Vein with Extraluminal Device, Percutaneous Endoscopic Approach (ICD-10-PCS; 2016-12-13 16:30)
DX: K65.9 Peritonitis, unspecified (principal); I85.11 Secondary esophageal varices with bleeding; I46.9 Cardiac arrest, cause unspecified; R57.1 Hypovolemic shock; E43 Unspecified severe protein-calorie malnutrition; K76.6 Portal hypertension; E87.2 Acidosis; F10.231 Alcohol dependence with withdrawal delirium; G40.509 Epileptic seizures related to external causes, not intractable, without status epilepticus; D69.6 Thrombocytopenia, unspecified; K70.31 Alcoholic cirrhosis of liver with ascites; N43.3 Hydrocele, unspecified; Z88.0 Allergy status to penicillin; K70.40 Alcoholic hepatic failure without coma; K31.89 Other diseases of stomach and duodenum; S01.512A Laceration without foreign body of oral cavity, initial encounter; E87.5 Hyperkalemia; Z68.32 Body mass index [BMI] 32.0-32.9, adult
CPT/HCPCS: 36415; 36600; 70450; 71010; 74177; 80048; 80053; 80076; 81003; 82105; 82140; 82553; 82607; 82803; 82947; 83605; 83735; 84100; 84132; 84439; 84484; 85014; 85018; 85025; 85027; 85610; 85730; 86592; 86850; 86900; 86901; 86923; 87040; 93005; 94002; 94760; 96365; 96367; 96368; 96375; 99291; C9113; J0171; J0461; J0696; J2060; J2250; J2270; J2354; J2370; J2405; J3475; P9016; P9035; P9059; Q9967